=== PATIENT | male | born 1985 | race Hispanic/Latino ===

== ENCOUNTER 2025-01-26 07:42 | Emergency (ER) | payer OTHER ==
[2025-01-26] MEDS ORDERED: Dexamethasone 10 MG/ML VIAL ONE (08:17)
== END 2025-01-26 08:22 | disposition home or self-care (01) ==
LOC: BURERS 07:42
DX: J02.9 Acute pharyngitis, unspecified (principal)
CPT/HCPCS: 87081; 87430; 99283; J1100